=== PATIENT | female | born 1960 | race Caucasian/White ===

== ENCOUNTER 2022-01-25 08:08 | Emergency (ER) | payer BC, SELFPAY ==
--- NOTE | 2022-01-25 08:08 | ED.URI ---
HPI - URI/Sore Throat General Chief Complaint: Upper Respiratory Infection Stated Complaint: fever, sinus pressure Time Seen by Provider: 01/25/22 08:20 Source: patient Mode of arrival: ambulatory Limitations: no limitations History of Present Illness HPI Narrative: Lindsey is a 61-year-old female patient presenting to the clinic today with complaints of fever, body aches, sinus pressure, cough, and congestion x3 days. Reports her highest fever was 101? F. she denies any known exposure to anybody with COVID, flu, or strep MD elicited complaint: fever, cough, nasal congestion and sinus pain Related Data Allergies Allergy/AdvReac Type Severity Reaction Status Date / Time penicillin G Allergy Unknown Rash Verified 01/25/22 08:21 Penicillins Allergy Unknown Rash Verified 01/25/22 08:21 shellfish derived Allergy Unknown Rash Verified 01/25/22 08:21 Review of Systems Review of Systems: Pertinent positives per HPI. Patient denies any fever, chills, rash, headache, visual changes, dizziness, cough, shortness of breath, chest pain, palpitations, nausea, vomiting, diarrhea, constipation, abdominal pain, or any urinary issues. [facility] Family History Family History Sibling Patient's sister is in good health Patient's brother is in good health Father Patient's father is Social History Social History Alcohol intake: current Comments At the time of my signature, I reviewed and agree with the nursing past medical, surgical, social, and family history. There is no relevant family history pertinent to the patient complaint. Exam Narrative: General: Well-developed, well nourished, in no apparent distress Head: Normocephalic, atraumatic Eyes: Pupils equally round and reactive to light bilaterally, EOM intact, sclera and conjunctive clear, no discharge, lids normal Ears: TMs intact and dull, ear canals clear, no drainage, grossly hearing normal. Nose: Nares patent, clear nasal discharge, no inflammation, no sinus tenderness. Mouth: Oral pharynx without lesions or masses, good dentition, MMM. Postnasal drip Neck: Supple, trachea midline, no enlargement of anterior or posterior cervical nodes, no thyroid masses or goiter palpable. Cardio: Regular rate and rhythm, s1 and s2 normal, no murmur appreciated. Resp: Clear to auscultation bilaterally, no rhonchi, rales, wheezing or rubs Course Course Emergency Course: Portions of this record may have been created with voice recognition software. Level of Care: Express Care Visit Vital Signs Vital signs: Vital signs reviewed MDM - URI/Sore Throat MDM Narrative Medical decision making narrative: At the time of visit patient is resting comfortably on the exam table. Influenza swab was obtained and the patient was positive for influenza A. Prescription for Tamiflu was sent to the pharmacy. Supportive measures were discussed with the patient and she voiced understanding of discharge instructions and agrees to treatment plan. Differential Diagnosis Differential diagnosis: Likely upper respiratory infection, otitis media, sinusitis, viral infection, bronchitis, influenza, pharyngitis and other (COVID) Discharge Plan Discharge Clinical Impression: Influenza A Patient Disposition: Home, Self-Care Condition: Stable Instructions: Influenza (ED) Additional Instructions: Take prescription medications only as prescribed-Tamiflu Increase fluids and stay well hydrated Tylenol/motrin for pain/fever Flonase and OTC antihistamines as directed Vicks vapor rub to open sinuses Sinus rinses for congestion Cepacol spray, cough drops, throat lozenges, warm tea with honey/lemon, gargle salt water to soothe throat BRAT diet for diarrhea Clear liquids x 24 hours then advance as tolerated for nausea/vomiting Go to the ED if you develo
[2022-01-25 08:15] VITALS: BP 109/81; PULSE 107; RESP 16; TEMP 37.3; O2SAT 99
== END 2022-01-25 08:33 | disposition home or self-care (01) ==
PROVIDERS: Emergency Provider Nurse Practitioner Family
DX: J10.1 Influenza due to other identified influenza virus with other respiratory manifestations (principal)
CPT/HCPCS: 87804; 99213; G0463

== ENCOUNTER 2022-07-03 17:54 | Emergency (ER) | payer BC, SELFPAY ==
[2022-07-03 18:11] VITALS: BP 122/68; PULSE 76; RESP 16; TEMP 36.5; O2SAT 100
--- NOTE | 2022-07-03 18:23 | ED.EYEPROB ---
HPI - Eye Problem General Chief complaint: Eye Problems Stated complaint: pink eye Time Seen by Provider: 07/03/22 18:23 Source: patient Mode of arrival: ambulatory Limitations: no limitations History of Present Illness HPI Narrative: 62-year-old female presented for complaint of left eye irritation for about 2 days. She endorses waking in the morning and it feels gritty, and she feels there is a film over her eye in the morning. She denies purulent drainage, but has been having tearing. Endorses it feels like something is in her eye, but denies known injury. Pain is worse to the inner eye. Denies swelling, redness, photophobia or vision changes. Endorses coworker has pink eye. MD chief complaint: eye pain Related Data Allergies Allergy/AdvReac Type Severity Reaction Status Date / Time penicillin G Allergy Unknown Rash Verified 07/03/22 18:09 Penicillins Allergy Unknown Rash Verified 07/03/22 18:09 shellfish derived Allergy Unknown Rash Verified 07/03/22 18:09 Review of Systems Review of Systems: CONSTITUTIONAL: Denies body aches, fever, chills EYES:Endorses FB sensation left eye Denies swelling, redness photophobia or visual changes ENT: Denies rhinorrhea, congestion, sore throat, or otalgia. CARDIOVASCULAR: Denies chest pain, palpitations RESPIRATORY: Denies cough or dyspnea. SKIN: Denies rash, itching, or wounds. MUSCULOSKELETAL: Denies back pain, joint pain, or myalgia. NEUROLOGIC: Denies headache All systems reviewed & are unremarkable except as noted in HPI and below PMFSH Past Medical History Medical History (Updated 07/03/22 @ 18:40 by Rosalind Barger APRN) No pertinent past medical history Family History Family History Sibling Patient's sister is in good health Patient's brother is in good health Father Patient's father is Social History Social History Alcohol intake: current Comments At time of signature, I have reviewed and agree with nursing past medical, surgical, social and family history unless otherwise noted. Please see nursing chart for further information. There is no relevant family history pertinent to the presenting complaint Exam Narrative: GENERAL: Well-appearing HEAD: Normocephalic, atraumatic. EYES: No conjunctival injection, No eye lid swelling, purulent drainage, or stye. Mild erythema to lower lid and tearing to left. PERRLA, EOMI. Lid eversion showed no FB. ENT: Mucous membranes pink and moist. No rhinorrhea. TMs normal bilaterally. Throat normal. Uvula midline. CHEST: Clear to auscultation. HEART: Regular rate and rhythm. ABDOMEN: Soft, nontender, nondistended SKIN: Warm, dry, no rash. Normal skin turgor. NEURO: No focal deficits. Alert and oriented x3 Course Course Emergency Course: Patient is aware of diagnosis, understands and agrees to treatment plan. Anticipatory guidance given. Patient agrees to follow-up as directed and is aware of reasons to seek care at the emergency department. Portions of this record may have been created with voice recognition software Level of Care: Express Care Visit Vital Signs Vital signs: Vital Signs Temperature 97.7 F 07/03/22 18:11 Pulse Rate 76 07/03/22 18:11 Respiratory Rate 16 07/03/22 18:11 Blood Pressure 122/68 07/03/22 18:11 Pulse Oximetry 100 07/03/22 18:11 Temperature 97.7 F 07/03/22 18:11 Pulse Rate 76 07/03/22 18:11 Respiratory Rate 16 07/03/22 18:11 Blood Pressure 122/68 07/03/22 18:11 Pulse Oximetry 100 07/03/22 18:11 Procedures FB Removal Eye Foreign Body #1: Foreign Body Removal Date: 07/03/22 Location: eye (L) Topical anesthetic used: tetracaine Evidence of corneal penetration: No Technique: eye wash bottle Procedure performed under: other (jernigan lamp) Patient t
== END 2022-07-03 18:43 | disposition home or self-care (01) ==
PROVIDERS: Emergency Provider Nurse Practitioner Family
DX: H57.12 Ocular pain, left eye (principal); Z85.41 Personal history of malignant neoplasm of cervix uteri
CPT/HCPCS: 99213; A9270; G0463

== ENCOUNTER 2024-05-09 17:54 | Emergency (ER) | payer BC, SELFPAY ==
[2024-05-09 18:13] VITALS: BP 122/79; PULSE 63; RESP 18; TEMP 36.5; O2SAT 98
--- NOTE | 2024-05-09 19:30 | ED_ITS ---
HPI - General Adult General Chief complaint: Extremity Injury, Lower Stated complaint: RT 3rd toe injury 6 wks ago Source: patient Mode of arrival: ambulatory Limitations: no limitations History of Present Illness HPI narrative: 63-year-old female presented for complaint of pain and swelling to the right 3rd toe for 6 weeks. Endorses she has seen the engineer and geologist, and was told they did not know what it was but x-ray was normal. She then took a week of left over clindamycin which she stopped yesterday due to heartburn. Has been soaking it in Epsom salt. She states it does appear better now because it was red and purple in color with more swelling. She denies numbness, tingling, weakness. Denies known injury. Related Data Allergies Allergy/AdvReac Type Severity Reaction Status Date / Time penicillin G Allergy Unknown Rash Verified 05/09/24 18:20 Penicillins Allergy Unknown Rash Verified 05/09/24 18:20 shellfish derived Allergy Unknown Rash Verified 05/09/24 18:20 Review of Systems Review of Systems: CONSTITUTIONAL: Denies body aches, fever, chills, or sweats. EYES: Denies visual changes, redness, or discharge. ENT: Denies rhinorrhea, congestion CARDIOVASCULAR: Denies chest pain, palpitations, or edema. RESPIRATORY: Denies cough or dyspnea. GASTROINTESTINAL: Denies abdominal pain, nausea, vomiting, or diarrhea. SKIN: per HPI MUSCULOSKELETAL: Denies back pain, joint pain, or myalgia. NEUROLOGIC: Denies headache, numbness, tingling, or weakness. [facility] Past Medical History Medical History (Updated 05/09/24 @ 19:41 by Rosalind Licona APRN) No pertinent past medical history Family History Family History Sibling Patient's sister is in good health Patient's brother is in good health Father Patient's father is Social History Social History Alcohol intake: current Comments At time of signature, I have reviewed and agree with nursing past medical, surgical, social and family history unless otherwise noted. Please see nursing chart for further information. There is no relevant family history pertinent to the presenting complaint Exam Narrative: GENERAL: Well-appearing EYES: conjunctivae clear, and EOMI. ENT: Mucous membranes moist. Oropharynx without edema, erythema or lesions. NECK: Supple. No lymphadenopathy CHEST: Clear to auscultation. HEART: Regular rate and rhythm. SKIN: Warm, dry. right 3rd toe with mild swelling to distal phalanx, reports tenderness to plantar surface, area of erythema to the platar surface without palpable FB. No fluctuance or induration. No streaking. NEURO: Alert and oriented x3. Course Course Emergency Course: Patient is aware of diagnosis, understands and agrees to treatment plan. Anticipatory guidance given. Patient agrees to follow-up as directed and is aware of reasons to seek care at the emergency department. Portions of this record may have been created with voice recognition software Level of Care: Express Care Visit Vital Signs Vital signs: Vital Signs Temperature 97.7 F 05/09/24 18:13 Pulse Rate 63 05/09/24 18:13 Respiratory Rate 18 05/09/24 18:13 Blood Pressure 122/79 05/09/24 18:13 Pulse Oximetry 98 05/09/24 18:13 Oxygen Delivery Room Air 05/09/24 18:13 Temperature 97.7 F 05/09/24 18:13 Pulse Rate 63 05/09/24 18:13 Respiratory Rate 18 05/09/24 18:13 Blood Pressure 122/79 05/09/24 18:13 Pulse Oximetry 98 05/09/24 18:13 Oxygen Delivery Room Air 05/09/24 18:13 Reviewed Medical Decision Making MDM Narrative Medical decision making narrative: Discussed physical exam findings. will send cephalexin at this time, recommend close f/u. Advised supportive measures and signs/symptoms to go to the ER. Pt is appropriate for outpt treatment and f/u. Differential Diagnosis Differential Diagnosis: Abrasion, avulsion, laceration, foreign body, cellulitis, paronychia Vital Signs Vital Signs: Vital Signs Temperature 97.7 F 05/09/24 18:13 Pulse Rate 63 05/09/24 18:13 Respiratory Rate 18 05/09/24 18:13 Blood Pressure 122/79 05/09/24 18:13 Pulse Oximetry 98 05/09/24 18:13 Oxygen Delivery Room Air 05/09/24 18:13 Temperature 97.7 F 05/09/24 18:13 Pulse Rate 63 05/09/24 18:13 Respiratory Rate 18 05/09/24 18:13 Blood Pressure 122/79 05/09/24 18:13 Pulse Oximetry 98 05/09/24 18:13 Oxygen Delivery Room Air 05/09/24 18:13 Discharge Plan Discharge Clinical Impression: Cellulitis of toe Patient Disposition: Home, Self-Care Condition: Stable Instructions: Antibiotic Form, Cellulitis (ED) Additional Instructions: Keep the area clean and dry - cleanse with warm water and mild soap and allow to fully dry. Ok to apply neosporin to the site Keep it open to air (no bandages unless draining) Tylenol for pain Watch for worsening symptoms including pain, redness, swelling, streaking, pus/drainage, fever. Go to the ER with any of these symptoms or concerns. Follow up with primary care provider as needed. Patient Language: Azeri Prescriptions: New cephalexin 500 mg capsule 500 mg PO Q8H 5 Days Qty: 15 0RF Follow-up/Referrals: UNKNOWN,DOCTOR [Primary Care Provider] -
== END 2024-05-09 19:47 | disposition home or self-care (01) ==
PROVIDERS: Emergency Provider Nurse Practitioner Family
DX: L03.031 Cellulitis of right toe (principal)
CPT/HCPCS: 99213; G0463